=== PATIENT | female | born 1960 | race Two or more races ===

== ENCOUNTER 2021-03-21 08:55 | Inpatient (IN) | payer OTHER ==
[~2021-03-21] VITALS: Ht 149.9 cm; Wt 48.7 kg
[2021-03-21 09:23] LABS: Basophils # (auto) 0 10 ^3/uL (0-0.2); Basophils % (auto) 0.5 % (0.0-2.0); Eosinophils # (auto) 0.2 10 ^3/uL (0-0.8); Eosinophils % (auto) 2.2 % (0.0-7.0); Hematocrit 27.8 % (36.0-46.0); Hemoglobin 9.4 g/dL (12.2-16.2); Lymphocytes # (auto) 1.3 10 ^3/uL (0.4-5.4); Lymphocytes % (auto) 13.9 % (10.0-50.0); Mean Corpuscular Hgb Conc. 33.9 g/dL (32.0-36.0); Mean Corpuscular Volume 88.5 fL (80.0-100.0); Monocytes # (auto) 0.6 10 ^3/uL (0-1.3); Monocytes % (auto) 6.7 % (0.0-12.0); Neutrophils % (auto) 76.7 % (37.0-80.0); Nucleated Red Blood Cells % 0.1 %; Red Blood Cells 3.14 10^6/uL (4.0-5.20); Red Cell Distribution Width 16.8 % (11.8-14.3); White Blood Cell 9.2 10^3/uL (4.4-10.8)
[2021-03-21] MEDS ORDERED: MAGNESIUM SULFATE 1GM/100ML 100 ML IV ONE (09:30)
[2021-03-21 09:45] LABS: INR 1.04 (0.9-1.15); Partial Thromboplastin Time 26.2 sec (23.0-31.2)
[2021-03-21 09:46] LABS: Albumin 3.4 g/dL (3.4-5.0); Calcium 8.9 mg/dL (8.5-10.1); Potassium 3.7 mmol/L (3.5-5.1)
[2021-03-21 09:51] LABS: BUN/Creatinine Ratio 4.8; Bilirubin, Total 0.5 mg/dL (0.2-1.0); Total Protein 7.2 g/dL (6.4-8.2)
[2021-03-21] MEDS ORDERED: ONDANSETRON HCL 4 MG/2 ML VIAL IV ONE (10:45)
[2021-03-21] MEDS ORDERED: MORPHINE SULFATE 4 MG/ML SYR/VIAL IV ONE (10:45)
[2021-03-21] MEDS ORDERED: cefTRIAXone 1GM/50ML D5W 50 ML IV ONE (11:30)
[2021-03-21] MEDS ORDERED: ONDANSETRON HCL 4 MG/2 ML VIAL IV PRN (14:00)
[2021-03-21] MEDS ORDERED: MORPHINE SULF INJ 2 MG/ML SYRINGE 1ML IV PRN ×2 (14:00)
[2021-03-21] MEDS ORDERED: NITROGLYCERIN 0.4 MG SL TAB SL PRN (14:00)
[2021-03-21] MEDS ORDERED: ACETAMINOPHEN 500 MG TAB PO PRN (14:00)
[2021-03-21] MEDS ORDERED: HYDROcodone-ACET 5/325MG TAB PO PRN (14:00)
[2021-03-21 14:30] LABS: Cholesterol 146 mg/dL (< 200)
[2021-03-21 14:33] LABS: HDL Cholesterol 65 mg/dL (40-59); LDL Cholesterol 63 mg/dL (< 100); Triglycerides 147 mg/dL (< 150)
[2021-03-21 17:00] VITALS: BP 149/60
[2021-03-21] MEDS: ATORVASTATIN 20 MG TAB PO SCH (21:43)
[2021-03-21] MEDS: METOPROLOL TARTRATE 25 MG TAB PO SCH (21:44)
[2021-03-21 22:00] VITALS: BP 150/67
[2021-03-21] MEDS ORDERED: TEMAZEPAM 15 MG CAP PO PRN (22:00)
[2021-03-22] MEDS: hydrALAZINE HCL 20 MG/ML VL IV PRN ×2 (00:26→04:44)
[2021-03-22 05:00] VITALS: BP 157/67
[2021-03-22 06:35] LABS: Basophils # (auto) 0.1 10 ^3/uL (0-0.2); Basophils % (auto) 1.4 % (0.0-2.0); Eosinophils # (auto) 0.4 10 ^3/uL (0-0.8); Hematocrit 28.2 % (36.0-46.0); Hemoglobin 9.6 g/dL (12.2-16.2); Lymphocytes # (auto) 1.9 10 ^3/uL (0.4-5.4); Lymphocytes % (auto) 22.5 % (10.0-50.0); Mean Corpuscular Hemoglobin 30.6 pg (28.0-32.0); Mean Corpuscular Hgb Conc. 34.1 g/dL (32.0-36.0); Mean Corpuscular Volume 89.7 fL (80.0-100.0); Monocytes # (auto) 0.7 10 ^3/uL (0-1.3); Monocytes % (auto) 8.5 % (0.0-12.0); Neutrophils # (auto) 5.5 10 ^3/uL (1.6-8.6); Neutrophils % (auto) 63.6 % (37.0-80.0); Red Blood Cells 3.14 10^6/uL (4.0-5.20); Red Cell Distribution Width 16.5 % (11.8-14.3); White Blood Cell 8.7 10^3/uL (4.4-10.8)
[2021-03-22 06:49] LABS: INR 1.05 (0.9-1.15); Partial Thromboplastin Time 29.1 sec (23.0-31.2)
[2021-03-22 06:54] LABS: BUN/Creatinine Ratio 5.2; Calcium 8.9 mg/dL (8.5-10.1); Potassium 5.1 mmol/L (3.5-5.1)
[2021-03-22] MEDS ORDERED: SODIUM CHL 0.9% 1000 ML BAG XX ONE (07:00)
[2021-03-22] MEDS: ADENOSINE 43 MG in GIVE UN-DILUTED 0 ML IV STA (08:19)
[2021-03-22 08:44] VITALS: BP 143/72
[2021-03-22] MEDS ORDERED: FAMOTIDINE 20 MG TAB PO SCH (10:00)
[2021-03-22] MEDS: METOPROLOL TARTRATE 25 MG TAB PO SCH ×2 (10:02→21:55)
[2021-03-22] MEDS: ASPirin-EC 81 mg tab PO SCH (10:03)
[2021-03-22] MEDS: LISINOPRIL 10 MG TAB PO SCH (10:03)
[2021-03-22 12:40] VITALS: BP 146/69
[2021-03-22 16:59] VITALS: BP 146/76
[2021-03-22] MEDS ORDERED: EPOETIN ALFA-EPBX 4,000 UNIT/ML VIAL SC ONE (21:00)
[2021-03-22] MEDS: ATORVASTATIN 20 MG TAB PO SCH (21:54)
[2021-03-22 22:18] VITALS: BP 151/70
[2021-03-23 05:14] VITALS: BP 148/72
[2021-03-23 06:47] LABS: Albumin 3.3 g/dL (3.4-5.0); Calcium 8.8 mg/dL (8.5-10.1); Potassium 4.5 mmol/L (3.5-5.1)
[2021-03-23 06:48] LABS: Basophils # (auto) 0.1 10 ^3/uL (0-0.2); Basophils % (auto) 1.3 % (0.0-2.0); Eosinophils # (auto) 0.3 10 ^3/uL (0-0.8); Eosinophils % (auto) 4.9 % (0.0-7.0); Hematocrit 27.4 % (36.0-46.0); Hemoglobin 9.2 g/dL (12.2-16.2); Lymphocytes # (auto) 1.8 10 ^3/uL (0.4-5.4); Lymphocytes % (auto) 26.6 % (10.0-50.0); Mean Corpuscular Hemoglobin 29.8 pg (28.0-32.0); Mean Corpuscular Hgb Conc. 33.4 g/dL (32.0-36.0); Mean Corpuscular Volume 89.2 fL (80.0-100.0); Monocytes # (auto) 0.7 10 ^3/uL (0-1.3); Monocytes % (auto) 10.7 % (0.0-12.0); Neutrophils # (auto) 3.8 10 ^3/uL (1.6-8.6); Neutrophils % (auto) 56.5 % (37.0-80.0); Red Blood Cells 3.08 10^6/uL (4.0-5.20); Red Cell Distribution Width 16.7 % (11.8-14.3); White Blood Cell 6.8 10^3/uL (4.4-10.8)
[2021-03-23 06:53] LABS: BUN/Creatinine Ratio 4.4; Bilirubin, Total 0.4 mg/dL (0.2-1.0); Total Protein 7.3 g/dL (6.4-8.2)
[2021-03-23 08:00] VITALS: BP 150/90
[2021-03-23 08:42] VITALS: BP 164/95
[2021-03-23] MEDS: ASPirin-EC 81 mg tab PO SCH (09:50)
[2021-03-23] MEDS: METOPROLOL TARTRATE 25 MG TAB PO SCH (09:52)
[2021-03-23] MEDS: LISINOPRIL 10 MG TAB PO SCH (09:52)
[2021-03-23 12:36] VITALS: BP 163/69
[2021-03-23 16:36] VITALS: BP 173/73
[2021-03-23 16:53] VITALS: BP 164/95
[2021-03-23] MEDS: hydrALAZINE HCL 20 MG/ML VL IV PRN (17:02)
== END 2021-03-23 18:25 | disposition home or self-care (01) | DRG 291 ==
LOC: EDBD 08:55 → ER 08:55 → TELE 13:54 → TELE-CENTR 16:34
PROVIDERS: ADMIT Nurse Practitioner Acute Care; ATTEND Internal Medicine
PROC: 5A1D70Z Performance of Urinary Filtration, Intermittent, Less than 6 Hours Per Day (ICD-10-PCS; principal; 2021-03-22)
DX: I13.2 Hypertensive heart and chronic kidney disease with heart failure and with stage 5 chronic kidney disease, or end stage renal disease (principal); N18.6 End stage renal disease; I50.33 Acute on chronic diastolic (congestive) heart failure; I47.1 Supraventricular tachycardia; E87.1 Hypo-osmolality and hyponatremia; D63.1 Anemia in chronic kidney disease; E11.22 Type 2 diabetes mellitus with diabetic chronic kidney disease; E83.39 Other disorders of phosphorus metabolism; J06.9 Acute upper respiratory infection, unspecified; I20.9 Angina pectoris, unspecified; Z20.822 Contact with and (suspected) exposure to COVID-19; Z99.2 Dependence on renal dialysis
CPT/HCPCS: 36415; 70450; 71045; 78452; 80048; 80053; 80061; 83880; 84443; 84484; 85025; 85610; 85730; 86141; 87340; 87426; 93005; 93017; 93306; 96365; 96367; 96375; G0378; J0153; J0696; J2405